=== PATIENT | male | born 1965 | race Caucasian/White ===

== ENCOUNTER → 2017-12-22 | Outpatient (CLI) | payer BC ==
[2017-12-22 09:28] LABS: HEMOGLOBIN 16.1 g/dL (13.0-17.5)
[2017-12-22 17:12] LABS: TESTOSTERONE TOTAL 460 ng/dL (264-916)
== END | disposition home or self-care (01) ==
LOC: LAB 08:26
PROVIDERS: ATTEND Internal Medicine Endocrinology, Diabetes & Metabolism
DX: Z12.5 Encounter for screening for malignant neoplasm of prostate (principal); E29.1 Testicular hypofunction
CPT/HCPCS: 36415; 84403; 85014; 85018; G0103

== ENCOUNTER 2019-06-08 10:50 | Emergency (ER) | payer BC ==
[~2019-06-08] VITALS: Ht 195.6 cm; Wt 125.0 kg
[2019-06-08 10:50] VITALS: BP 129/72
--- NOTE | 2019-06-08 11:25 | PHYS DOC ---
General Adult EDM: Chief Complaint: FOOT INJURY PAIN HPI: HPI: Patient is a 53-year-old male who presented to ER today for evaluation of right ankle pain after he rolled at home today while working outside in his garden.Patient denies any head or neck injury, denies any other injury. Patient was able to walk but with pain. Review of Systems: Review of Systems: Constitutional: Denies fever or chills Eyes: Denies change in visual acuity HENT: Denies nasal congestion or sore throat Respiratory: Denies cough or shortness of breath Cardiovascular: Denies chest pain or edema GI: Denies abdominal pain, nausea, vomiting, bloody stools or diarrhea : Denies dysuria Musculoskeletal: Positive for right ankle pain. Integument: Denies rash Neurologic: Denies headache, focal weakness or sensory changes Endocrine: Denies polyuria or polydipsia Lymphatic: Denies swollen glands Psychiatric: Denies depression or anxiety Heart Score: Risk Factors: Risk Factors: DM, Current or recent (<one month) smoker, HTN, HLP, family history of CAD, obesity. Risk Scores: Score 0 - 3: 2.5% MACE over next 6 weeks - Discharge Home Score 4 - 6: 20.3% MACE over next 6 weeks - Admit for Clinical Observation Score 7 - 10: 72.7% MACE over next 6 weeks - Early Invasive Strategies Physical Exam: PE: Constitutional: Well developed, well nourished, no acute distress, non-toxic appearance. [] HENT: Normocephalic, atraumatic, bilateral external ears normal, oropharynx moist, no oral exudates, nose normal. [] Eyes: PERRLA, EOMI, conjunctiva normal, no discharge. [] Neck: Normal range of motion, no tenderness, supple, no stridor. [] Cardiovascular:Heart rate regular rhythm, no murmur [] Lungs & Thorax: Bilateral breath sounds clear to auscultation [] Abdomen: Bowel sounds normal, soft, no tenderness, no masses, no pulsatile masses. [] Skin: Warm, dry, no erythema, no rash. [] Back: No tenderness, no CVA tenderness. [] Extremities: Right ankle is tender at the lateral malleolus, no obvious deformity, minimal swelling present. There is no tenderness to palpation at the foot or the right knee area. Neurologic: Alert and oriented X 3, normal motor function, normal sensory function, no focal deficits noted. [] Psychologic: Affect normal, judgement normal, mood normal. [] EKG: EKG: [] Radiology/Procedures: Radiology/Procedures: [][address] [id number] IMAGING REPORT Signed PATIENT: MAXINE NG RACCOUNT: [id number] : 1965 LOCATION: ER AGE: 53 SEX: M EXAM STATUS: REG ER ORD. PHYSICIAN: BIENVENIDO BARNETT DO REASON: RIGHT ANKLE INJURED PROCEDURE: ANKLE RIGHT 3V Three-view right ankle study Clinical indications: Right ankle injury and pain FINDINGS: No acute fracture or dislocation or lytic process is seen. The mortise ankle joint is intact. IMPRESSION: No acute fracture. Electronically signed by: Melissa Musa MD (06/08/2019 12:01 PM) [id number] DICTATED AND SIGNED BY: MELISSA MUSA MD DATE: 06/08/19 1201 CC: NIKA CHA; BIENVENIDO BARNETT DO ~ Course & Med Decision Making: Course & Med Decision Making Pertinent Labs and Imaging studies reviewed. (See chart for details) [] An Aircast was placed on the right ankle by patient RNMod[place] Disclaimer: [place] Disclaimer: This electronic medical record was generated, in whole or in part, using a voice recognition dictation system. Departure Departure: Impression: Primary Impression: Right ankle sprain Disposition: HOME, SELF-CARE Condition: STABLE Referrals: PCPNIKA (PCP) follow up with your doctor as needed next week Patient Instructions: Ankle Sprain, Acute, with Phase I Rehab-SportsMed BIENVENIDO BARNETT DO June 08, 2019 11:24
--- NOTE | 2019-06-08 12:04 | RAD ---
Three-view right ankle study Clinical indications: Right ankle injury and pain FINDINGS: No acute fracture or dislocation or lytic process is seen. The mortise ankle joint is intact. IMPRESSION: No acute fracture. Electronically signed by: Kelechi Musa MD (06/08/2019 12:01 PM) [id number]
== END 2019-06-08 12:20 | disposition home or self-care (01) ==
LOC: ER 10:50
DX: S93.401A Sprain of unspecified ligament of right ankle, initial encounter (principal); X50.9XXA Other and unspecified overexertion or strenuous movements or postures, initial encounter; Y93.89 Activity, other specified; Y92.89 Other specified places as the place of occurrence of the external cause; Y99.8 Other external cause status
CPT/HCPCS: 29515; 73610; 99283